=== PATIENT | male | born 1955 | race Caucasian/White ===

== ENCOUNTER 2022-03-25 05:57 | Day surgery (SDC) | payer BC, MEDICARE ==
[2022-03-25] MEDS ORDERED: Sodium Chloride 0.9% 1,000 ML IV SCH ×2 (06:45→07:45)
[2022-03-25] MEDS ORDERED: Midazolam 1 MG/ML 2 ML SDV ONE (07:09)
[2022-03-25] MEDS ORDERED: Propofol 200 MG/20 ML SDV ONE (07:09)
[2022-03-25] MEDS ORDERED: fentaNYL 100 MCG/2 ML SDV ONE (07:09)
== END 2022-03-25 09:25 | disposition home or self-care (01) ==
LOC: JP.SDS 05:57
PROVIDERS: ATTEND Surgery
DX: Z12.11 Encounter for screening for malignant neoplasm of colon (principal)
CPT/HCPCS: G0121; J2250; J2704; J3010; J7030